=== PATIENT | male | born 1995 | race Hispanic/Latino ===

== ENCOUNTER 2023-12-20 05:57 | Emergency (ER) | payer SELFPAY ==
[2023-12-20] MEDS ORDERED: Ketorolac Tromethamine 30 MG (1 mL) VIAL ONE (06:22)
[2023-12-20] MEDS ORDERED: Cyclobenzaprine 10 MG TAB ONE (06:22)
[2023-12-20] MEDS ORDERED: HYDROcodone/Acetaminophen 5/325 mg Tablet ONE (06:22)
== END 2023-12-20 06:45 | disposition home or self-care (01) ==
LOC: ERS 05:57
DX: M43.6 Torticollis (principal)
CPT/HCPCS: 96372; 99283; J1885